=== PATIENT | male | born 1965 | race Caucasian/White ===

== ENCOUNTER 2020-08-16 14:19 | Outpatient (CLI) | payer OTHER, SELFPAY ==
--- NOTE | 2020-08-16 15:00 | USCV_ITS ---
Long Fletcher Age: 55 Gender: M : 1965 Exam Date: 08/16/2020 14:31 Ordering Phys: Aaliyah Hoyt MD ([email or web address]) Technologist: Denise Plummer Exam Location: [facility] [place] Indication: BRUIT Risk Factors: Previous Vascular Surgery: Right Brachial BP: / Left Brachial BP: / Right Left Velocity (cm/s) Spectral Plaque Velocity (cm/s) Spectral Plaque Syst/Diast Broadening Syst/Diast Broadening 125.70/25.40 Prox CCA 100.80/ 23.40 140.00/24.30 Mid CCA 116.90/ 29.20 136.70/29.80 Distal CCA 93.50 / 29.20 59.50/ 20.90 Prox ICA 48.00 / 16.00 57.30/ 24.20 Mid ICA 57.70 / 17.10 64.50/ 28.70 Distal ICA 70.50 / 26.70 99.20 ECA 132.90 0.46 ICA/CCA 0.60 Antegrade Vertebral Antegrade 34.90/ 12.50 cm/s 44.80/ 12.80 cm/s Tri Subclavian Tri 125.6 99.30 0 FINDINGS Intimal thickening in the common carotid internal carotid arteries bilaterally Minimal plaques in the left bifurcation Normal Doppler flow velocities. No unstable plaques Antegrade flow in the vertebral arteries bilaterally CONCLUSIONS Intimal thickening in the common carotid internal carotid arteries bilaterally. Minimal plaques of the left bifurcation No significant stenosis, based on the above findings Dr Juan F Le MD [facility] (Electronically Signed) Final Date: 17 August 2020 08:46 S
== END 2020-08-16 14:20 | disposition home or self-care (01) ==
LOC: US 14:20
PROVIDERS: PCP Nurse Practitioner; Visit Provider Internal Medicine Cardiovascular Disease
DX: R09.89 Other specified symptoms and signs involving the circulatory and respiratory systems (principal)
CPT/HCPCS: 93880

== ENCOUNTER 2021-08-24 18:26 | Emergency (ER) | payer OTHER, SELFPAY ==
[2021-08-24 19:18] VITALS: BP 168/96; PULSE 70; RESP 18; TEMP 36.8; O2SAT 99; BMI 21.9
--- NOTE | 2021-08-24 19:56 | XRR_ITS ---
PROCEDURE INFORMATION: Exam: XR Left Elbow Exam date and time: 08/24/2021 7:56 PM Age: 56 years old Clinical indication: Pain; Mass or lump; Elbow; Left; Additional info: Elbow swelling and pain TECHNIQUE: Imaging protocol: XR Left elbow. Views: 3 or more views. COMPARISON: No relevant prior studies available. FINDINGS: Bones/joints: Negative for fracture. Joint spaces are preserved. Soft tissues: Normal. XR/XR elbow LT min 3V* 36125 IMPRESSION: No acute findings. Radiation Dose CTDIVOL = (mGy): DLP = (mGy-cm)
[2021-08-24 20:58] VITALS: BP 131/81; PULSE 57; RESP 18; O2SAT 97
--- NOTE | 2021-08-24 21:28 | USR_ITS ---
PROCEDURE INFORMATION: Exam: US Duplex Left Upper Extremity Veins, Limited Exam date and time: 08/24/2021 9:28 PM Age: 56 years old Clinical indication: Pain; Leg, lower; Left; Additional info: Left elbow swelling and pain TECHNIQUE: Imaging protocol: Real-time Duplex ultrasound of the Left Upper Extremity with 2-D carty scale, color Doppler flow and spectral waveform analysis with image documentation. Limited exam focused on the left upper extremity veins. COMPARISON: CR (UP EX, ) 08/24/2021 8:31 PM FINDINGS: Evaluated veins include the left internal jugular, subclavian, axillary, brachial, basilic, cephalic, radial, and ulnar veins. No visible clot in the included veins. The included veins appear normally compressible. Duplex Doppler evaluation demonstrates flow in the evaluated veins. US/[place] [address] IMPRESSION: No evidence of acute left upper extremity DVT. Radiation Dose CTDIVOL = (mGy): DLP = (mGy-cm)
--- NOTE | 2021-08-24 21:29 | W.ED.WOUNDLC ---
HPI - Wound/Laceration General: Chief Complaint: Wound/Laceration Stated Complaint: L Elbow Swelling Time Seen by Provider: 08/24/21 20:58 History of Present Illness: HPI narrative: Patient is a 56-year-old male comes to the ED with left elbow swelling. Symptoms started today. 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 Pain is very mild and he has no pain with any range of motion of left elbow. His main concern for here in the ED is to check for a blood clot in the left arm. Denies any chest pain, shortness of breath or hemoptysis. Associated symptoms: Denies chills, fever(s), nausea or vomiting Review of Systems Const: Denies: fever(s), chills or fatigue Eyes: Denies: change in vision or eye discomfort ENMT: Denies: throat pain, odynophagia, nasal discharge or nasal congestion Card: Denies: chest pain, palpitations, edema, swelling of feet/ankles, dyspnea on exertion or orthopnea Resp: Denies: dyspnea, productive cough or non-productive cough GI: Denies: abdominal pain, nausea, vomiting, diarrhea, constipation or hematochezia : Denies: flank pain, difficulty urinating, dysuria or hematuria Musc: Reports: extremity swelling (left elbow ); Denies: neck pain, back pain or limited range of motion Skin/Breast: Denies: rash or new lesions Neuro: Denies: headache(s), numbness in extremities or weakness in extremities PFS ED PFSH: Medical History Demyelinating disease Essential (primary) hypertension Multiple sclerosis NSVT (nonsustained ventricular tachycardia) Surgical History History of arthroscopy of left knee Family History Father Cancer Prostate Social History Smoking and tobacco status: never smoked Second hand smoke exposure: No Smoking risk assessment/counseling performed?: No Alcohol intake: never Desire information about alcohol rehabilitation?: No Counseling given: No Desire information about substance/drug rehabilitation?: No Counseling given: No Caregiver/support person: No Lives independently: Yes Household members: spouse Housing: House Marital status: service: No Current occupational status: employed 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 History of recent travel: No Current gender identity: Male Physical Exam Const: COMMON NORMALS: no acute distress, patient oriented x3 and alert GENERAL APPEARANCE: cooperative and comfortable HENMT: COMMON NORMALS: normocephalic HEAD & SCALP: normocephalic MOUTH: Normal oral and palatal mucosa present THROAT: posterior oropharynx normal and uvula midline Neck/C-Spine: COMMON NORMALS: supple GENERAL: Yes normal visual inspection Resp: COMMON NORMALS: normal respiratory effort, No retractions, No use of accessory muscles and clear to auscultation bilaterally AUSCULTATION: clear to auscultation bilaterally Cardio: COMMON NORMALS: regular rate, regular rhythm, S1 normal heart sound present, S2 normal heart sound present, No gallops present (Cardio), No clicks present (Cardio), No murmurs present (Cardio) and Peripheral pulses 2+ throughout RATE: regular rate RHYTHM: regular rhythm HEART SOUNDS: S1 normal heart sound present and S2 normal heart sound present PERIPHERAL PULSES: Peripheral pulses 2+ throughout GI: COMMON NORMALS: Normal to inspection, nondistended, normoactive bowel sounds present, Soft to palpation, non-tender and no masses PALPATION: Yes Soft to palpation : COMMON NORMALS: Yes no CVA tenderness BLADDER/KIDNEY EXAM: Yes no CVA tenderness Back/Pelvis: COMMON NORMALS: no CVA tenderness Extremity: GENERAL: Yes normal exam except as noted LEFT UPPER EXTREMITY: Yes elbow joint Left elbow: Yes inspection (Palpable fluid pocket on posterior elbow-likely bursitis), Yes palpation (Mild tenderness upon direct palpation of bursitis), Yes ROM (Full range of motion) and Yes neurovascular exam (Intact) Neuro: COMMON NORMALS: patient oriented x3 and moves all extremities SENSORIUM/ORIENTATION: Yes alert Skin: GENERAL SKIN EXAM: dry skin Course Vital Signs: Vital signs: Vital Signs Temperature 98.2 F 08/24/21 19:18 Pulse Rate 78 08/24/21 23:05 Respiratory Rate 18 08/24/21 23:05 Blood Pressure 131/81 08/24/21 20:58 Pulse Oximetry 96 08/24/21 23:05 MDM - Wound/Laceration MDM Narrative: Medical decision making narrative: Patient is a 56-year-old male comes to the ED with left elbow swelling. Patient denies any injury or trauma to cause swelling. 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 Patient denies any chest pain, shortness of breath or hemoptysis. Vital stable. Exam findings suggestive of elbow bursitis. He has full range of motion in left elbow. X-ray left elbow showed no acute fractures or findings. Ultrasound of left upper extremity showed no DVTs or clots seen. Patient diagnosed with bursitis of left elbow and discharged home. He was told to follow-up with his PCP in 7 to 10 days reevaluation. Return to ED precautions given. Rest and ice elbow and take [id number] ibuprofen or Tylenol for pain. Patient understood and agreed with plan. Imaging Data^: Xray Ortho: Attestation: I personally reviewed and interpreted this imaging study as follows: Radiologist's impression: [id number] [id number] XRay Report Signed Patient: Long Fletcher V Unit #: [id number] : 1965 Age/Sex: 56 / M ADM Date: 08/24/21 Loc: ER Room/Bed: Attending Dr: Ordering Provider/Ordering MD: Joey Mukherjee Date of Service: 08/24/21 Procedure(s): XR elbow LT min 3V* 04832 Accession Number(s): [id number] Report Number: [id number] PROCEDURE INFORMATION: Exam: XR Left Elbow Exam date and time: 08/24/2021 7:56 PM Age: 56 years old Clinical indication: Pain; Mass or lump; Elbow; Left; Additional info: Elbow swelling and pain TECHNIQUE: Imaging protocol: XR Left elbow. Views: 3 or more views. COMPARISON: No relevant prior studies available. FINDINGS: Bones/joints: Negative for fracture. Joint spaces are preserved. Soft tissues: Normal. XR/XR elbow LT min 3V* [id number] IMPRESSION: No acute findings. Radiation Dose CTDIVOL = (mGy): DLP = (mGy-cm) Dictated By: Geoffrey Chicas DO Signed By: Geoffrey Chicas DO Signed Date/Time: 08/24/212125 DD/ 55 Vascular: Attestation: I personally reviewed and interpreted this imaging study as follows: Radiologist's impression: Ultrasound venous duplex of left upper extremity?prelim report?no DVTs or blood clots seen. Discharge Plan Discharge Patient Disposition: Home Clinical Impression: Bursitis of left elbow Qualifiers: Elbow bursitis location: olecranon bursitis Qualified Code(s): M70.22 - Olecranon bursitis, left elbow Condition: Stable Prescriptions: No Action multivitamin Tablet 1 tab PO DAILY RF: 0 Ocrevus 30 mg/mL solution IVP RF: 0 prostagentix PO RF: 0 azithromycin [Zithromax Z-Matthew] 250 mg tablet See Rx Instructions PO .COMPLEX Qty: 6 RF: 0 prednisone 20 mg tablet 20 mg PO BID 3 Days Qty: 6 RF: 0 Discharge Orders: Discharge ED (Routine); Ordered 08/24/21 Ordered By: Joey Mukherjee Referrals: Raysa Kaminski, [employer] [Primary Care Provider] - Discharge Diet: Regular Discharge Activity: Increase activity as tolerated Patient Instructions: Elbow Bursitis (ED) Activity Restrictions/Additional Instructions: Follow-up with medical provider as directed in about 5 days reevaluation. You can rest, apply cold pack on elbow and take [id number] ibuprofen to help with inflammation.. Return to the ER or your medical provider if condition worsens. Please read and understand discharge instructions. Thank you for choosing [facility] for your healthcare needs today. Please realize this is an emergency room and that we are providing you with a medical screening exam and this may not be complete and all inclusive of all the testing and or work up that you may need to determine your ailment or severity of your illness. It is very important that you follow up as instructed or that you return to the Emergency Department should you have concerns or if your condition changes or worsens in any way. Coding Level of Care Code ED Primer Boxer for Robby Brandt Exam Comprehensive
[2021-08-24 23:05] VITALS: PULSE 78; RESP 18; O2SAT 96
== END 2021-08-24 23:06 | disposition home or self-care (01) ==
PROVIDERS: Emergency Provider Physician Assistant; PCP Nurse Practitioner
DX: M70.22 Olecranon bursitis, left elbow (principal); I10 Essential (primary) hypertension; G35 Multiple sclerosis
CPT/HCPCS: 73080; 93971; 99282

== ENCOUNTER 2024-08-12 13:14 | Outpatient (CLI) | payer OTHER, SELFPAY ==
--- NOTE | 2024-08-12 13:19 | USCV_ITS ---
Long Fletcher Age: 59 Gender: M : 1965 Exam Date: 08/12/2024 13:36 Ordering Phys: Junior Bishop MD Technologist: CT [place] [facility] [place]ication: rt neck pain/pressure Risk Factors: Previous Vascular Surgery: Right Brachial BP: / Left Brachial BP: / Right Left Velocity (cm/s) Spectral Plaque Velocity (cm/s) Spectral Plaque Syst/Diast Broadening Syst/Diast Broadening 114.80/25.40 Prox CCA 127.10/ 30.40 123.90/27.20 Mid CCA 134.20/ 32.80 99.40/ 25.20 Distal CCA 112.40/ 30.50 66.10/ 20.20 Prox ICA 89.90 / 22.30 61.20/ 24.20 Mid ICA 71.00 / 30.80 64.30/ 29.50 Distal ICA 87.40 / 32.70 92.80 ECA 97.40 0.70 ICA/CCA 0.80 Antegrade Vertebral Antegrade 44.30/ 13.60 cm/s 59.80/ 12.40 cm/s Tri Subclavian Tri 138.8 133.4 0 0 FINDINGS Comparison:. 08/16/20 No significant elevation of systolic or diastolic velocities. Waveforms are normal. Mild carotid atherosclerosis. CONCLUSIONS No interval change in stenosis since prior exam. Bilateral ICA stenosis less than 50%. Dr. Sujey Wang DO (Electronically Signed) Final Date: 12 August 2024 16:09 S
== END 2024-08-12 13:15 | disposition home or self-care (01) ==
LOC: RAD 13:15
PROVIDERS: PCP Family Medicine; Visit Provider Family Medicine
DX: M53.82 Other specified dorsopathies, cervical region (principal)
CPT/HCPCS: 93880